=== PATIENT | male | born 1990 | race African-American/Black ===

== ENCOUNTER 2016-10-05 13:16 | Emergency (ER) | payer OTHER ==
[~2016-10-05] VITALS: Ht 182.9 cm; Wt 65.0 kg
[~2016-10-05 13:16] MED LIST: IBUP800T23 PO; METH500T3 PO
[2016-10-05 13:19] VITALS: BP 168/89; PULSE 101; RESP 20; TEMP 98.6; O2SAT 99
--- NOTE | 2016-10-05 13:55 | PD ---
HPI Chief Complaint: Injury Time Seen by Provider: 13:30 Travel History International Travel<30 days: No Contact w/Intl Traveler<30days: No Traveled to known affect area: No History of Present Illness HPI 26-year-old male presents to the emergency department after sustaining a laceration to the left hand caused by an electric drill at work today. Patient reports moderate amount of pain at the site of laceration, aching, nonradiating , severity 6-10. He reports normal sensation of the hand and digit. He has full range of motion of the hand and digit. Bleeding is well-controlled. Tetanus status unknown. Patient denies past medical history. [facility] Past Medical History Medical History: Denies Significant Hx Asthma: Yes Diminished Hearing: No Social History Alcohol Use: No Tobacco Use: No Substance Use: No (HX OF CANNABIS) Allergies-Medications (Allergen,Severity, Reaction): Coded Allergies: No Known Allergies (Unverified , 09/24/15) Reported Meds & Prescriptions Reported Meds & Active Scripts Active No Active Prescriptions or Reported Medications Review of Systems Except as stated in HPI: all other systems reviewed are Neg Physical Exam Narrative GENERAL: Well-appearing well-nourished male. In no acute distress. SKIN: Focused skin assessment warm/dry. Left hand: 3 cm laceration over the dorsal aspect of the left thumb near the MCP joint. HEAD: Atraumatic. Normocephalic. EYES: Pupils equal and round. No scleral icterus. No injection or drainage. ENT: No nasal bleeding or discharge. Mucous membranes pink and moist. NECK: Trachea midline. No JVD. CARDIOVASCULAR: Regular rate and rhythm. No murmur appreciated. RESPIRATORY: No accessory muscle use. Clear to auscultation. Breath sounds equal bilaterally. GASTROINTESTINAL: Abdomen soft, non-tender, nondistended. Hepatic and splenic margins not palpable. MUSCULOSKELETAL:No obvious deformities. No clubbing. No cyanosis. No edema. Left hand: 3 cm laceration over the dorsal aspect of the left thumb near the MCP Joint. Bleeding well controlled. No tendon injury visualized. Patient has full range of motion against resistance. Normal sensation with 2-point discrimination distal digit. Brisk cap refill. NEUROLOGICAL: Awake and alert. No obvious cranial nerve deficits. Motor grossly within normal limits. Normal speech. PSYCHIATRIC: Appropriate mood and affect; insight and judgment normal. Data Data Last Documented VS Vital Signs Date Time Temp Pulse Resp B/P Pulse Ox O2 Delivery O2 Flow Rate FiO2 10/05/16 13:19 98.6 101 20 168/89 99 Orders Hand, Complete ([id number]) (10/05/16 ) Lidocaine 1% Inj (50 Ml) (Xylocaine 1% I (10/05/16 14:00) Tetanus/Diphtheria Tox Adult (Tetanus/Di (10/05/16 14:45) MDM Medical Decision Making Medical Screen Exam Complete: Yes Emergency Medical Condition: Yes Medical Record Reviewed: Yes Differential Diagnosis Hand laceration, tendon laceration of the right renal, finger fracture Narrative Course 26-year-old male sustained a hand laceration all at work today. Laceration was caused by electric drill to the dorsal aspect of the first metatarsal. The hand and digit is neurovascularly intact. No tendon involvement visualized. X- ray of the hand reveal no fracture. The wound was repaired. Tetanus immunization was updated. Patient instructed to follow up for recheck in 2 days with his primary doctor. Diagnosis Primary Impression: Laceration of hand Qualified Code: S61.412A - Laceration of left hand without foreign body, initial encounter Referrals: Primary Care Physician Patient Instructions: General Instructions, Laceration (ED) Scripts No Active Prescriptions or Reported Meds Disposition: 01 DISCHARGE HOME Condition: Stable Brianna De La Torre October 05, 2016 13:55
[2016-10-05] MEDS ORDERED: LIDOCAINE HCL 1% 50 ML VIAL INFIL ONE (14:00)
[2016-10-05] MEDS ORDERED: TETANUS/DIPHTHERIA TOXOID ADULT 0.5 ML VIAL IM ONE (14:45)
--- NOTE | 2016-10-05 14:55 | RADRPT ---
EXAM DATE/TIME: 10/05/2016 14:26 [facility] COMPARISON: No previous studies available for comparison. INDICATIONS : Left hand pain after drill goes into hand. MEDICAL HISTORY : None. SURGICAL HISTORY : None. ENCOUNTER: Initial ACUITY: 1 day PAIN SCORE: 9/10 LOCATION: Left hand, metacarpal area between 1st and 2nd digit. FINDINGS: Three view examination of the left hand demonstrates soft tissue injury along the thumb. There is gau ze and overlying minimal debris. No fracture. Bony mineralization is normal.CONCLUSION: Soft tissue swelling with minimal debris. No acute fracture. Buzz Kelly MD on October 05, 2016 at 14:53 Board Certified Radiologist. This report was verified electronically.
--- NOTE | 2016-10-05 15:00 | PD ---
Physical Exam Time Seen by Provider: 14:57 Narrative I repaired the laceration to the dorsal aspect of the left thumb. Data Data Last Documented VS Vital Signs Date Time Temp Pulse Resp B/P Pulse Ox O2 Delivery O2 Flow Rate FiO2 10/05/16 13:19 98.6 101 20 168/89 99 Orders Hand, Complete ([id number]) (10/05/16 ) Lidocaine 1% Inj (50 Ml) (Xylocaine 1% I (10/05/16 14:00) Tetanus/Diphtheria Tox Adult (Tetanus/Di (10/05/16 14:45) MDM Supervised Visit with BAILEY: No Narrative Course I repaired the laceration over the dorsal aspect of the left thumb near the MCP joint. See my procedure note for laceration repair. Procedures Procedure Narrative LACERATION LOCATION: Dorsal aspect of left thumb near the MCP joint LENGTH: L-shaped; approximately 3 cm; with an area approximately one centimeter not requiring suturing NUMBER OF STITCHES/CARMELINA: 4 simple interrupted stitches REPAIR: The area of the laceration was prepped with Betadine and sterilely draped. The laceration was infiltrated with 1% lidocaine. The wound was copiously irrigated and explored without evidence of foreign body, tendon injury or neurovascular injury. The wound was closed using 4-0 Prolene. This was a single layer repair. A sterile dressing was applied. The patient was advised to keep the dressing clean and dry. Patient tolerated the procedure well. Referrals: Primary Care Physician Patient Instructions: General Instructions, Laceration (ED) Scripts No Active Prescriptions or Reported Meds Disposition: 01 DISCHARGE HOME Condition: Stable Jacquelyn Glass October 05, 2016 15:00
== END 2016-10-05 15:32 | disposition home or self-care (01) ==
LOC: NEPK 13:16
DX: S61.412A Laceration without foreign body of left hand, initial encounter (principal); Z23 Encounter for immunization; W29.8XXA Contact with other powered hand tools and household machinery, initial encounter; Y93.89 Activity, other specified; Y92.69 Other specified industrial and construction area as the place of occurrence of the external cause; Y99.0 Civilian activity done for income or pay
CPT/HCPCS: 12002; 73130; 90471; 90714

== ENCOUNTER 2016-10-12 14:00 | Emergency (ER) | payer SELFPAY ==
[~2016-10-12] VITALS: Ht 182.9 cm; Wt 68.0 kg
[2016-10-12 14:02] VITALS: BP 124/70; PULSE 84; RESP 15; TEMP 97.9; O2SAT 98
--- NOTE | 2016-10-12 14:18 | PD ---
Physical Exam Date Seen by Provider: October 12, 2016 Time Seen by Provider: 14:17 Narrative 26 yo male that presents to the ED for evaluation of work release. Was here for laceration last week. Here more medical clearance so he can go back to work. Denies any other complaints other than possible suture removal. Vitals sign stable. Patient awaiting bed placement. Data Data Last Documented VS Vital Signs Date Time Temp Pulse Resp B/P Pulse Ox O2 Delivery O2 Flow Rate FiO2 10/12/16 14:02 97.9 84 15 124/70 98 MDM Medical Record Reviewed: Yes Supervised Visit with BAILEY: No Scripts No Active Prescriptions or Reported Meds Rafael Joseph October 12, 2016 14:18
--- NOTE | 2016-10-12 14:48 | PD ---
HPI Chief Complaint: Wound/Suture/Staple Re-Check Time Seen by Provider: 14:20 Travel History International Travel<30 days: No Contact w/Intl Traveler<30days: No Traveled to known affect area: No History of Present Illness HPI Patient is a 26-year-old male presented to emergency department have stitches removed from his left thumb. He has no complaints today. He denies any redness , drainage or swelling at the laceration site. PFSH Past Medical History Asthma: Yes Diminished Hearing: No Social History Alcohol Use: No Tobacco Use: No Substance Use: No (HX OF CANNABIS) Allergies-Medications (Allergen,Severity, Reaction): Coded Allergies: No Known Allergies (Unverified , 10/12/16) Reported Meds & Prescriptions Reported Meds & Active Scripts Active No Active Prescriptions or Reported Medications Review of Systems Except as stated in HPI: all other systems reviewed are Neg Physical Exam Narrative GENERAL: Well-nourished, well-developed patient. SKIN: Focused skin assessment warm/dry. Well-healed laceration to left thumb on the dorsal aspect. 4 intact sutures noted. Sutures are well approximated HEAD: Normocephalic. EYES: No scleral icterus. No injection or drainage. NECK: Supple, trachea midline. No JVD or lymphadenopathy. CARDIOVASCULAR: Regular rate and rhythm without murmurs, gallops, or rubs. RESPIRATORY: Breath sounds equal bilaterally. No accessory muscle use. GASTROINTESTINAL: Abdomen soft, non-tender, nondistended. MUSCULOSKELETAL: No cyanosis, or edema. BACK: Nontender without obvious deformity. No CVA tenderness. Data Data Last Documented VS Vital Signs Date Time Temp Pulse Resp B/P Pulse Ox O2 Delivery O2 Flow Rate FiO2 10/12/16 14:02 97.9 84 15 124/70 98 [facility] Medical Decision Making Medical Screen Exam Complete: Yes Emergency Medical Condition: Yes Interpretation(s) Vital Signs Date Time Temp Pulse Resp B/P Pulse Ox O2 Delivery O2 Flow Rate FiO2 10/12/16 14:02 97.9 84 15 124/70 98 Differential Diagnosis Normal wound healing versus wound dehiscence versus cellulitis versus other Narrative Course Patient is a 26-year-old male presenting to emergency for evaluation and removal of stitches to his left thumb. There is no sinus symptoms of infection. Stitches were removed without difficulty. Patient tolerated well. He was advised to follow-up with his primary doctor. Patient was cleared to return to work with no restrictions. He was encouraged to return to emergency department for any new or worsening symptoms. Patient is stable for discharge. Diagnosis Primary Impression: Encounter for removal of sutures Referrals: Primary Care Physician Patient Instructions: General Instructions Departure Forms: Tests/Procedures, Work Release Enter return to work date: October 12, 2016 Special Instructions: Patient may return to work with no restrictions. Additional Instructions: Follow-up with your primary doctor He may return to work with no restrictions Return to emergency department for any new or worsening symptoms Med/Other Pt SpecificInfo: No Change to Meds Scripts No Active Prescriptions or Reported Meds Disposition: DISCHARGE HOME Condition: Stable Naty Archer October 12, 2016 14:48
== END 2016-10-12 15:25 | disposition home or self-care (01) ==
LOC: NEPK 14:00
DX: S61.012D Laceration without foreign body of left thumb without damage to nail, subsequent encounter (principal); Z48.02 Encounter for removal of sutures; X58.XXXD Exposure to other specified factors, subsequent encounter
CPT/HCPCS: 99281